=== PATIENT | male | born 1935 | race Caucasian/White ===

== ENCOUNTER → 2017-01-28 | Outpatient (CLI) | payer OTHER | LOC: BMCIMAGING 11:47 | PROVIDERS: ATTEND Family Medicine | DX: M25.552 Pain in left hip (principal); W19.XXXA Unspecified fall, initial encounter; Z96.642 Presence of left artificial hip joint ==

== ENCOUNTER 2017-08-27 06:40 | Day surgery (SDC) | payer OTHER ==
[2017-08-27] MEDS ORDERED: fentaNYL 100 MCG/2 ML INJ IVP ONE (06:44)
[2017-08-27] MEDS ORDERED: BENZOCAINE UNIT DOSE SPRAY HURRICAINE MM ONE (06:44)
[2017-08-27] MEDS ORDERED: MIDAZOLAM 2 MG/2 ML VIAL IVP ONE (06:44)
[2017-08-27] MEDS ORDERED: NS 500 ML IV ONE (06:44)
[2017-08-27] MEDS ORDERED: ATROPINE SULFATE 1 MG/10 ML SYR IVP ONE (06:44)
--- NOTE | 2017-08-27 06:58 | CPEKG ---
Heart Rate: 66 RR Interval: 909 P-R Interval: 280 QRSD Interval: 142 QT Interval: 520 QTC Interval: 545 P [place]: 87 QRS [place]: 59 T Wave [place]: 8 EKG Severity - ABNORMAL ECG - EKG Impression: ATRIAL FLUTTER WITH 4:1 CONDUCTION EKG Impression: RIGHT BUNDLE BRANCH BLOCK Electronically Signed By: Mathew Waters 27-Aug-2017 07:51:35
[2017-08-27 07:21] LABS: INR 1.14 (0.83-1.16); PROTIME(PATIENT) 14.8 SEC (12.0-15.0)
--- NOTE | 2017-08-27 07:58 | PDANEPAE ---
ANE Past Medical History - Cardiovascular History Hx Hypertension: No Hx Arrhythmias: Yes Hx Coronary Artery / Peripheral Vascular Disease: Yes Hx CHF / Valvular Disease: No Cardiovascular History Comment: SVT - CONTROLLED WITH MEDS. PREVIOUS ABLATION. 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 BLADDER SURG - TUMOR. CARDIAC ABLATION 2013. TENDON R KNEE. HIP REPLACEMENT L. ARTHROSCOPY KNEE L. TONSILLECTOMY ANE Review of Systems Review of Systems: ANE Patient History - Allergies Allergies/Adverse Reactions: caffeine [Caffeine] Allergy (Intermediate, Verified 04/08/14 20:51) HEART PALPATATIONS, FEEL "WEIRD" - Home Medications Home Medications: [place]-3 Fatty Acids [Fish Oil 1000 mg (*)] 1,000 mg PO DAILY 05/24/12 [Last Taken 04/08/14] Herbals/Supplements -Info Only 1 ea PO DAILY 02/15/14 [Last Taken 04/08/14] Lovastatin [Mevacor] 20 mg PO DAILY 04/08/14 [Last Taken 04/08/14] - Smoking Hx Smoking Status: Former smoker ANE Labs/Vital Signs - Labs Result Diagrams: 08/27/17 07:00 - Vital Signs Height: 180.34 cm Weight: 77.111 kg ANE Physical Exam - Airway Neck exam: decreased ROM Mallampati Score: Class 1 Mouth exam: normal dental/mouth exam - Pulmonary Pulmonary: no respiratory distress - Cardiovascular Cardiovascular: regular rate and rhythym - ASA Status ASA Status: III ANE Anesthesia Plan Anesthesia Plan: GA with mask
[2017-08-27] MEDS ORDERED: PROPOFOL 200 MG/20 ML VIAL ONE (07:59)
[2017-08-27] MEDS ORDERED: LIDOCAINE 1% 5 ML SDV ONE (07:59)
[2017-08-27] MEDS ORDERED: SUCCINYLCHOLINE CHLORIDE 200 MG/10 ML SYR IVP ONE (08:00)
--- NOTE | 2017-08-27 08:01 | PDHPUP ---
History & Physical Update H&P update statement: This history and physical update is based on an assessment of the patient which was completed after admission or registration (within 24 hours), but prior to the surgery/procedure. H&P update: H&P reviewed & patient examined, no change in patient's condition since H&P completed
--- NOTE | 2017-08-27 08:13 | PDTEE1 ---
WAGNER Cardioversion Procedure Procedure: electrical cardioversion, transesophageal echo Indications: other (Atrial flutter) Procedural Details: Pads were placed in anterior-posterior position. WAGNER probe was advanced and standard images obtained. There is no evidence of left atrial or left atrial appendage thrombus. Synchronized cardioversion attempt #1: other (70J) Results: normal sinus rhythm Conclusions: successful WAGNER cardioversion Patient Problems: Problems Problem Status Onset Neoplasm of kidney Acute Atrial fibrillation Acute Transient ischemic attack Acute
--- NOTE | 2017-08-27 08:25 | CPEKG ---
Heart Rate: 65 RR Interval: 923 P-R Interval: 372 QRSD Interval: 146 QT Interval: 440 QTC Interval: 458 P [place]: 4 QRS [place]: 24 T Wave [place]: -20 EKG Severity - ABNORMAL ECG - EKG Impression: SINUS RHYTHM EKG Impression: FIRST DEGREE AV BLOCK EKG Impression: RIGHT BUNDLE BRANCH BLOCK Electronically Signed By: Mathew Waters 27-Aug-2017 10:16:50
--- NOTE | 2017-08-27 08:36 | POSTANESTH ---
Post Anesthetic Evaluation Cardiovascular Status: Normal, Stable Respiratory Status: Normal, Stable Level of Consciousness/Mental Status: Can Participate in Eval Pain Control: Adequate, Prn Tx Ordered Nausea/Vomiting Control: Adequate, Prn Tx Ordered Complications Possibly Related to Anesthesia: None Noted
--- NOTE | 2017-08-30 08:11 | ECHO ---
[email or web address] [place] [id number] Main: [phone] Fax: Transesophageal Echocardiography Name: LAURYN BYRNE MR#: [id number] Study Date: 08/27/2017 Study Time: 07:57 AM Date of : 1935 Age: 81 year(s) Height: ( ) Weight: ( ) BSA: Gender: Male Examination: WAGNER Indication: Pre Cardioversion Image Quality: Contrast: Requested by: Nicolás Wilson Heart Rate: Rhythm: BP: / Procedure Staff Teacher Hearing Impaired: Raghu Jacob RDCS Reading Physician: Nicolás Wilson MD Requesting Provider: WAGNER Exam Details Measurements: Chambers Valvular Assessment AV/MV Valvular Assessment TV/PV Normal Normal Normal Name Value Range Name Value Range Name Value Range Additional Measurements: Findings: Left Ventricle: The EF is 40-45%. Left Atrial Appendage: Good color flow doppler in the left atrial appendage. No thrombus in left appendage. Aortic Valve: The aortic valve is normal in appearance and function. The aortic valve is tri-leaflet. Tricuspid Valve: The tricuspid valve is normal in appearance and function. Exam Comments: Proceeded with successful elective DC cardioversion.. l1n (No Signature Object) Patient: LAURYN BYRNE Study Date: 08/27/2017 Page 1 of 2 07:57 AM Patient: LAURYN BYRNE Study Date: 08/27/2017 Page 2 of 2 07:57 AM [id number]
== END 2017-08-27 10:07 | disposition home or self-care (01) ==
LOC: FCATH 06:40
PROVIDERS: ATTEND Internal Medicine Interventional Cardiology
PROC: 5A2204Z Restoration of Cardiac Rhythm, Single (ICD-10-PCS; principal; 2017-08-27)
PROC: B245ZZ4 Ultrasonography of Left Heart, Transesophageal (ICD-10-PCS; principal; 2017-08-27)
DX: I48.92 Unspecified atrial flutter (principal); I25.10 Atherosclerotic heart disease of native coronary artery without angina pectoris; I10 Essential (primary) hypertension; E78.5 Hyperlipidemia, unspecified
CPT/HCPCS: J0330; J0461; J2704

== ENCOUNTER → 2018-12-12 | Outpatient (CLI) | payer OTHER | LOC: FIMAGING 07:27 ==